=== PATIENT | female | born 2000 | race African-American/Black ===

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

== ENCOUNTER 2021-06-29 00:01 | Emergency (ER) | payer OTHER, MEDICAID ==
--- NOTE | 2021-06-29 00:40 | ED Physician Documentation ---
PD HPI URI - Stated complaint Stated Complaint: CHEST PAIN, SOA, BLURRED VISION - Chief complaint Chief Complaint: General - History obtained from History obtained from: Patient - History of Present Illness Timing - onset: How many weeks ago (1) Timing duration: Weeks (1) Timing details: Gradual onset, Still present Associated symptoms: Nasal congestion, Rhinorrhea, Sore throat, Dry cough, Chest pain, Dyspnea, Other (fatigue and light headed) Contributing factors: Unimmunized Improves by: Rest Worsened by: Activity Similar symptoms before: Diagnosis (tonsillitis) Recently seen: Not recently seen - Additional information Additional information: 21-year-old female reports weeklong history of URI symptoms with a sore throat and congestion headache fatigue and shortness of breath. She has had tonsillitis previously and feels that her tonsils are swollen and this is the biggest issue that she has. She has not been immunized for Covid. Review of Systems Constitutional: reports: Myalgias, Fatigue. denies: Fever Eyes: denies: Decreased vision Ears: denies: Ear pain Nose: reports: Rhinorrhea / runny nose, Congestion Throat: reports: Sore throat Cardiac: reports: Chest pain / pressure. denies: Palpitations Respiratory: reports: Dyspnea, Cough GI: denies: Abdominal Pain, Nausea, Vomiting : denies: Dysuria PD PAST MEDICAL HISTORY - Past Medical History Past Medical History: No - Past Surgical History Past Surgical History: No - Present Medications Home Medications: Ambulatory Orders Medication Instructions Recorded Confirmed No Known Home Medications 06/29/21 06/29/21 - Allergies Allergies/Adverse Reactions: Allergies Allergy/AdvReac Type Severity Reaction Status Date / Time No Known Drug Allergies Allergy Verified 06/29/21 00:05 - Social History Does the pt smoke?: No Smoking Status: Never smoker PD ED PE NORMAL - Vitals Vital signs reviewed: Yes (hypertensive ) - General General: Alert and oriented X 3, No acute distress, Well developed/nourished - HEENT HEENT: Atraumatic, PERRL, EOMI, Ears normal, Other (pharynx with 2+ tonsils without exudate or crypts. 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 parapertussis DNA (PCR) NOT DETECTED Nasal Coronavir 229E PCR NOT DETECTED Nasal Coronavir HKU1 PCR NOT DETECTED Nasal Coronavir NL63 PCR NOT DETECTED Nasal Coronavir OC43 PCR NOT DETECTED Nasal Enterovir/Rhinovir PCR NOT DETECTED Nasal Influenza B PCR NOT DETECTED Nasal Influenza A PCR NOT DETECTED Nasal Parainfluen 1 PCR NOT DETECTED Nasal Parainfluen 2 PCR NOT DETECTED Nasal Parainfluen 3 PCR NOT DETECTED Nasal Parainfluen 4 PCR NOT DETECTED Nasal RSV (PCR) NOT DETECTED Nasal B.pertussis DNA PCR NOT DETECTED Nasal C.pneumoniae (PCR) NOT DETECTED Rashaad Human Metapneumo PCR NOT DETECTED Nasal M.pneumoniae (PCR) NOT DETECTED Nasal SARS-CoV-2 (PCR) NOT DETECTED Group A Strep Rapid Negative PD MEDICAL DECISION MAKING - ED course Complexity details: reviewed results, re-evaluated patient, considered differential, d/w patient ED course: 21-year-old female with enlarged tonsils without exudate is diagnosed with a viral pharyngitis a rapid strep is negative Covid screen is negative as are other viral pathogens.She is treated here in the emerge department with 10 mg of dexamethasone and expected to have full recovery. Departure - Departure Disposition: 01 Home, Self Care Clinical Impression: Tonsillitis Instructions: ED Pharyngitis Viral Follow-Up: Daryl Corral MD [Primary Care Provider] - Discharge Date/Time: 06/29/21 02:05
[2021-06-29 01:03] LABS: RAPID STREP SCREEN Negative (Negative)
[2021-06-29] MEDS ORDERED: DEXAMETHASONE 10 MG/ML VIAL PO STA (01:03)
[2021-06-29] MEDS ORDERED: CHERRY SYRUP 10 ML UDC PO ONE (01:03)
[2021-06-29 01:49] LABS: CORONAVIRUS 229E-RESP PCR NOT DETECTED; CORONAVIRUS HKU1-RESP PCR NOT DETECTED; CORONAVIRUS NL63-RESP PCR NOT DETECTED; CORONAVIRUS OC43-RESP PCR NOT DETECTED; HUMAN METAPNEUMOVIRUS NOT DETECTED; INFLUENZA A- RESP PCR PANEL NOT DETECTED; RHINOVIRUS/ENTEROVIRUS NOT DETECTED; SARS-CoV-2 -RESP PCR PANEL NOT DETECTED
[2021-06-29 01:50] LABS: B. PARAPERTUSSIS- RESP PCR PAN NOT DETECTED; B. PERTUSSIS- RESP PCR PANEL NOT DETECTED; C. PNEUMONIAE- RESP PCR PANEL NOT DETECTED; INFLUENZA B - RESP PCR PANEL NOT DETECTED; M. PNEUMONIAE- RESP PCR PANEL NOT DETECTED; PARAINFLUENZA VIRUS 1 NOT DETECTED; PARAINFLUENZA VIRUS 2 NOT DETECTED; PARAINFLUENZA VIRUS 3 NOT DETECTED; PARAINFLUENZA VIRUS 4 NOT DETECTED; RSV- RESP PCR PANEL NOT DETECTED
[2021-06-29 02:11] VITALS: BP 107/54
== END 2021-06-29 02:05 | disposition home or self-care (01) ==
LOC: ED 00:01
DX: J03.90 Acute tonsillitis, unspecified (principal); Z20.822 Contact with and (suspected) exposure to COVID-19
CPT/HCPCS: 0202U; 87070; 87430; 99283; 99284; A9270

== ENCOUNTER 2021-08-23 21:55 | Emergency (ER) | payer OTHER, MEDICAID ==
[2021-08-23 22:21] LABS: BASOPHILS % (AUTO) 0.3 %; EOSINOPHILS # (AUTO) 0.2 10^3/uL (0.0-0.7); EOSINOPHILS % (AUTO) 3.5 %; HCT - HEMATOCRIT 41.5 % (37.0-47.0); HGB - HEMOGLOBIN 13.3 g/dL (12.0-16.0); LYMPHOCYTES # (AUTO) 3.5 10^3/uL (1.5-3.5); LYMPHOCYTES % (AUTO) 54.2 %; MEAN CORPUSCULAR HEMOGLOBIN 28.1 pg (27.0-31.0); MEAN CORPUSCULAR VOLUME 87.6 fL (81.0-99.0); MONOCYTES # (AUTO) 0.6 10^3/uL (0.0-1.0); MONOCYTES % (AUTO) 8.8 %; NEUTROPHILS # (AUTO) 2.1 10^3/uL (1.5-6.6); NEUTROPHILS % (AUTO) 32.9 %; PLT - PLATELET COUNT 315 10^3/uL (130-450); RED BLOOD COUNT 4.74 10^6/uL (4.20-5.40); RED CELL DISTRIBUTION WIDTH 13.2 % (12.0-15.0); WHITE BLOOD COUNT 6.5 x10^3/uL (4.8-10.8)
[2021-08-23 22:22] LABS: BILIRUBIN,URINE NEGATIVE (NEGATIVE); GLUCOSE, URINE (UA) NEGATIVE (NEGATIVE); KETONES,URINE (UA) NEGATIVE (NEGATIVE); LEUKOCYTE ESTERASE, URINE NEGATIVE (NEGATIVE); NITRITE,URINE NEGATIVE (NEGATIVE); OCCULT BLOOD,URINE NEGATIVE (NEGATIVE); PH,URINE 5.5 PH (5.0-7.5); PROTEIN,URINE NEGATIVE (NEGATIVE); UROBILINOGEN,URINE 0.2 (NORMAL) E.U./dL (NORMAL)
[2021-08-23 22:26] LABS: CLARITY,URINE CLEAR (CLEAR)
--- NOTE | 2021-08-23 22:32 | ED Physician Documentation ---
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 She is presented to the emergency department today with some left lower quadrant abdominal pain and cramping without bleeding. She has had undulation of her symptoms. She has not had ultrasound with this and feels she is about 8 weeks. Review of Systems Constitutional: denies: Fever Nose: denies: Congestion Throat: reports: Other (has a left tonsillar hypertrophy). 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, Other HEENT: Tonsil/Adenoidectomy - Present Medications Home Medications: Ambulatory Orders Medication Instructions Recorded Confirmed No Known Home Medications 06/29/21 08/23/21 - Allergies Allergies/Adverse Reactions: Allergies Allergy/AdvReac Type Severity Reaction Status Date / Time No Known Drug Allergies Allergy Verified 08/23/21 22:03 - Social History Does the pt smoke?: No Smoking Status: Never smoker Does the pt drink ETOH?: No Does the pt have substance abuse?: No - Immunizations Immunizations are current?: Yes - POLST Patient has POLST: No PD ED PE NORMAL - Vitals Vital signs reviewed: Yes (normal ) - General General: Alert and oriented X 3, No acute distress, Well developed/nourished - HEENT HEENT: Atraumatic, PERRL, EOMI - Neck Neck: Supple, no meningeal sign, No bony TTP - Cardiac Cardiac: RRR, No murmur - Respiratory Respiratory: No respiratory distress, Clear bilaterally - Abdomen Abdomen: Normal bowel sounds, Soft, Non distended, No organomegaly, Other (mini mal left suprapubic tenderness) - Back Back: No CVA TTP, No spinal TTP - Derm Derm: Normal color, Warm and dry, No rash - Extremities Extremities: No deformity, No edema - Neuro Neuro: Alert and oriented X 3, base loader 2-12 intact, No motor deficit, No sensory deficit, Normal speech Eye Opening: Spontaneous Motor: Obeys Commands Verbal: Oriented GCS Score: 15 - Psych Psych: Normal mood, Normal affect Results - Vitals Vitals: Vital Signs - 24 hr 08/23/21 08/24/21 21:58 00:28 Temperature 36.4 C L 36.8 C Heart Rate 83 77 Respiratory 18 16 Rate Blood Pressure 113/66 106/69 O2 Saturation 100 100 Oxygen O2 Source Room air - Labs Labs: Laboratory Tests 08/23/21 08/23/21 08/23/21 22:08 22:10 22:10 WBC 6.5 RBC 4.74 Hgb 13.3 Hct 41.5 MCV 87.6 MCH 28.1 MCHC 32.0 RDW 13.2 Plt Count 315 MPV 10.0 Neut # (Auto) 2.1 Lymph # (Auto) 3.5 [place] # (Auto) 0.6 Eos # (Auto) 0.2 Baso # (Auto) 0.0 Absolute Nucleated RBC 0.00 Nucleated RBC % 0.0 Sodium 136 Potassium 3.9 Chloride 103 Carbon Dioxide 26 Anion Gap 7.0 BUN 9 Creatinine 0.6 Estimated GFR (MDRD) 154 Glucose 90 Calcium 9.6 Total Bilirubin 0.5 AST 20 ALT 21 Alkaline Phosphatase 67 Total Protein 8.3 H Albumin 4.4 Globulin 3.9 Albumin/Globulin Ratio 1.1 Lipase 36 HCG, Quant Urine Color YELLOW Urine Clarity CLEAR Urine pH 5.5 Ur Specific [place] 1.010 Urine Protein NEGATIVE Urine Glucose (UA) NEGATIVE Urine Ketones NEGATIVE Urine Occult Blood NEGATIVE Urine Nitrite NEGATIVE Urine Bilirubin NEGATIVE Urine Urobilinogen 0.2 (NORMAL) Ur Leukocyte Esterase NEGATIVE Ur Microscopic Review NOT INDICATED Urine Culture Comments NOT INDICATED 08/23/21 22:10 WBC RBC Hgb Hct MCV MCH MCHC RDW Plt Count MPV Neut # (Auto) Lymph # (Auto) [place] # (Auto) Eos # (Auto) Baso # (Auto) Absolute Nucleated RBC Nucleated RBC % Sodium Potassium Chloride Carbon Dioxide Anion Gap BUN Creatinine Estimated GFR (MDRD) Glucose Calcium Total Bilirubin AST ALT Alkaline Phosphatase Total Protein Albumin Globulin Albumin/Globulin Ratio Lipase HCG, Quant 553.24 Urine Color Urine Clarity Urine pH Ur Specific [place] Urine Protein Urine Glucose (UA) Urine Ketones Urine Occult Blood Urine Nitrite Urine Bilirubin Urine Urobilinogen Ur Leukocyte Esterase Ur Microscopic Review Urine Culture Comments - Rads (name of study) ob ultrasound 1st trimester. Radiology: Prelim report reviewed (Impression: 1. No intrauterine identified. A very early may be present. Enlarged and hypervascular left fallopian tube region may contain an ectopic although the gestational sacs is not seen. Differential diagnosis includes prominent periuterine vasculature. ), Final report received ( Small amount of free fluid in the cul-de-sac. Gynecologic consult, serial beta hCG level and close clinical follow-up could be considered), EMP read indepedently, See rad report PD MEDICAL DECISION MAKING - ED course Complexity details: reviewed results, re-evaluated patient, considered differential, d/w patient ED course: 21-year-old female with early and a low seizure serum hCG has no findings of intra uterine . She does have some findings in the left fallopian tube. Her case is concerning for the possibility of ectopic and she is asked to follow-up this week with POLICE STENOGRAPHER for repeat hCG. Departure - Departure Disposition: 01 Home, Self Care Clinical Impression: Early stage of Instructions: ED Abdominal Pain Rule Out Ectopic Follow-Up: Daryl Corral MD [Primary Care Provider] - [facility] [Provider Group] Comments: Atif, today we were unable to establish that your is in the uterus. The quantitative hCG is low at 553 and we do not expect to see anything by ultrasound --- too early. A follow up with the OB doctor this coming week is indicated to get a second hCG number to assure the is progressing normally. Discharge Date/Time: 08/24/21 01:04
[2021-08-23 22:36] LABS: ALBUMIN 4.4 g/dL (3.2-5.5); ALBUMIN/GLOBULIN RATIO 1.1 (1.0-2.2); BILIRUBIN,TOTAL 0.5 mg/dL (0.2-1.0); CREATININE 0.6 mg/dL (0.4-1.0); POTASSIUM 3.9 mmol/L (3.5-5.0); TOTAL PROTEIN 8.3 g/dL (6.7-8.2)
[2021-08-23 22:45] LABS: CALCIUM 9.6 mg/dL (8.5-10.3)
[2021-08-24 00:29] VITALS: BP 106/69
--- NOTE | 2021-08-24 01:03 | Ultrasound Report ---
PROCEDURE: OB First Trimester INDICATIONS: early LLQ pain OUTSIDE/PRIOR DATING DATA: Last menstrual period (LMP): 06/26/2021. LMP-based estimated date of delivery (QI): 04/02/2022. First dating scan (date and location): 08/23/2021, current study. Estimated date of delivery (QI) from first dating scan: Not applicable. TECHNIQUE: Real-time scanning was performed of the fetus and maternal pelvic organs, with image documentation. COMPARISON: None FINDINGS: Embryo: Not applicable Heart rate: Not applicable Measurement variability in dating: +/- 4 weeks by LMP, +/- 7 days by mean sac diameter (use before 6 weeks gestation if crown-rump length not able to be measured), +/- 5 days by crown-rump length (6-12 weeks gestation). Maternal organs: The uterine endometrium appears diffusely thickened measuring approximately 19 mm. There is a tiny irregular 4 mm cystic space, but no definite intrinsic uterine gestational sac. The left ovary contains a 1.6 cm dominant follicle without significant peripheral hypervascularity. T he left fallopian tube is prominent and demonstrates increased vascular flow, however a discrete tuba l structure is not identified. There is no adjacent free fluid. The right ovary appears nor mal. Small amount of fluid around the right ovary is present in the cul-de-sac. IMPRESSION: 1. No intrauterine identified. A very early may be present. 2. Enlarged and hypervascular left fallopian tube region may contain an ectopic although th e gestational sac was not seen. Differential diagnosis includes prominent periuterine vasculature. 3. Small amount of free fluid in the cul-de-sac. 4. Gynecologic consult, serial beta-hCG level, and close clinical follow-up could be considered. Reviewed by: Nikki Flores MD on 08/24/2021 1:02 AM PST Approved by: Nikki Flores MD on 08/24/2021 1:02 AM PST Station ID: [id number]
== END 2021-08-24 01:04 | disposition home or self-care (01) ==
LOC: ED 21:55
DX: O26.891 Other specified pregnancy related conditions, first trimester (principal); R93.89 Abnormal findings on diagnostic imaging of other specified body structures; Z3A.00 Weeks of gestation of pregnancy not specified
CPT/HCPCS: 36415; 80053; 81001; 81003; 83690; 84702; 85025; 87086; 99283; 99284

== ENCOUNTER 2021-08-26 07:07 | Outpatient (CLI) | payer OTHER, MEDICAID | END 2021-08-26 07:08 | disposition home or self-care (01) | LOC: LAB 07:07 | PROVIDERS: ATTEND Obstetrics & Gynecology | DX: R10.32 Left lower quadrant pain (principal) | CPT/HCPCS: 36415; 84702 ==

== ENCOUNTER 2021-10-16 23:48 | Emergency (ER) | payer OTHER, MEDICAID ==
--- NOTE | 2021-10-16 23:57 | ED Physician Documentation ---
PD HPI FEMALE - Stated complaint Stated Complaint: BLEEDING, CRAMPING - History obtained from History obtained from: Patient - History of Present Illness Timing - onset: Today Timing - details: Abrupt onset Pain level max: 1 Associated symptoms: Pelvic pain (left/midline pelvic cramping3), Vaginal discharge. 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 She has had an ultrasound in this which she says was normal. She has had left pelvic and suprapubic cramping, intermittently, since she was found to be (since July; this is not new). Her chief concern tonight is vaginal brown fluid leakage (pe r patient) from her vagina tonight. There was only one such episode; she isnt certain if it was brownish blood or something else. Has not had this before. Does not know her blood type Review of Systems Constitutional: denies: Fever GI: denies: Abdominal Pain, Vomiting : reports: Vaginal bleeding (? (brown fluid, uncertain if this represented blood)), Now EGA (11+weeks). 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, Other HEENT: Tonsil/Adenoidectomy - Present Medications Home Medications: Ambulatory Orders Medication Instructions Recorded Confirmed Pnv No.163/Iron/Folate No.10 [Pnv 1 tab PO DAILY 10/17/21 10/17/21 Tabs 20-1 Tablet] - Allergies Allergies/Adverse Reactions: Allergies Allergy/AdvReac Type Severity Reaction Status Date / Time No Known Drug Allergies Allergy Verified 08/23/21 22:03 - Social History Does the pt smoke?: No Smoking Status: Never smoker Does the pt drink ETOH?: No Does the pt have substance abuse?: No - Immunizations Immunizations are current?: Yes - POLST Patient has POLST: No PD ED PE NORMAL - Vitals Vital signs reviewed: Yes - General General: Alert and oriented X 3, No acute distress, Well developed/nourished - Cardiac Cardiac: RRR, No murmur - Respiratory Respiratory: No respiratory distress, Clear bilaterally - Abdomen Abdomen: Normal bowel sounds, Soft, Non tender, Non distended - Back Back: No CVA TTP Results - Vitals Vitals: Oxygen O2 Source Room air - Labs Labs: Microbiology 10/17/21 01:55 Urine Culture - Final Urine,Clean Catch No growth Laboratory Tests 10/17/21 10/17/21 00:31 01:55 Urine Color YELLOW Urine Clarity CLEAR Urine pH 6.5 Ur Specific [place] 1.010 Urine Protein NEGATIVE Urine Glucose (UA) NEGATIVE Urine Ketones NEGATIVE Urine Occult Blood NEGATIVE Urine Nitrite NEGATIVE Urine Bilirubin NEGATIVE Urine Urobilinogen 0.2 (NORMAL) Ur Leukocyte Esterase TRACE H Urine RBC None Seen Urine WBC 4-5 Ur Squamous Epith Cells FEW Squamous Urine Bacteria Rare Ur Microscopic Review INDICATED Urine Culture Comments INDICATED Blood Type B POSITIVE - Rads (name of study) pelvic US Radiology: Prelim report reviewed, See rad report PD MEDICAL DECISION MAKING - ED course Complexity details: reviewed results, re-evaluated patient, considered differe ntial, d/w patient ED course: blood type is B+, so no concern for rhogam. UA is nearly normal, but with trace WBC, culture will be performed and if appropriate results, can start antibiotics for asymptomatic bacteruria in setting of . US is mostly reassuring with normal heart rate. There is a small subchorionic hemorrhage. I discussed results with patient, recommended f/u with her rn clinical, return precautions discussed. Departure - Departure Disposition: 01 Home, Self Care Clinical Impression: Threatened miscarriage Condition: Good Instructions: ED Miscarriage Poss Follow-Up: Daryl Corral MD [Primary Care Provider] - Comments: Your blood type is B POSITIVE. Your urinalysis has trace white blood cells; while this is an abnormal finding, the amount of white blood cells (and lack of other findings to suggest a urinary tract infection) means you do not need antibiotics at this time. A urine culture will be done next, and if the result is positive (should be available within 2 days), you will need antibiotics (you should receive a call from this hospital if your urinalysis result shows an infection). Your ultrasound is mostly reassuring, with a normal heart rate, with the fetus measurements consistent with a 12 week, 2 day . There is a corpus luteal cyst of the left ovary; this ia a normal finding. There is a small amount of bleeding adjacent to the within the uterus; this is called a subchorionic hemorrhage. It is an abnormal finding, but it is small on today's ultrasound. While this is a concerning finding, when it is a small amount of bleeding, it does not correlate with outcomes such as miscarriage. You should follow up with your rn clinical by calling the office on Tuesday , relay this information to them and they can advise you regarding follow up recommendations and the timing of follow-up. Forms: Activity restrictions Discharge Date/Time: 10/17/21 03:15
--- NOTE | 2021-10-17 02:04 | Ultrasound Report ---
PROCEDURE: OB First Trimester INDICATIONS: 11 WEEKS , CRAMPING, SCANT VAGINAL DISCHARGE OUTSIDE/PRIOR DATING DATA: Last menstrual period (LMP): Unknown. LMP-based estimated date of delivery (QI): Unknown First dating scan (date and location): Not available. Estimated date of delivery (QI) from first dating scan: Not available TECHNIQUE: Real-time scanning was performed of the fetus and maternal pelvic organs, with image documentation. COMPARISON: None FINDINGS: Embryo: Single intrauterine gestational sac is seen with fetus noted. [place]-rump length measures 5.6 9 cm. Estimated gestational age is 12 weeks, 2 days. Heart rate: 158 bpm. Small subchorionic bleed is noted measures 1.6 x 0.6 x 2.8 cm in size. Placental venous dorado is also noted. Measurement variability in dating: +/- 4 weeks by LMP, +/- 7 days by mean sac diameter (use before 6 weeks gestation if crown-rump length not able to be measured), +/- 5 days by crown-rump length (6-12 weeks gestation). Maternal organs: Corpus luteal cyst is noted in left ovary measures 1.6 x 1.6 x 1 cm in size. IMPRESSION: 1. Single live intrauterine with fetus seen. heart rate is 158 bpm. Estimated gestati onal age based on current study is 12 weeks, 2 days. 2. Small subchorionic hemorrhage as above. Corpus luteal cyst in left ovary as above. Reviewed by: Lewis Swanson MD on 10/17/2021 2:02 AM PST Approved by: Lewis Swanson MD on 10/17/2021 2:02 AM PST Station ID: [id number]
[2021-10-17 02:05] LABS: BILIRUBIN,URINE NEGATIVE (NEGATIVE); GLUCOSE, URINE (UA) NEGATIVE (NEGATIVE); KETONES,URINE (UA) NEGATIVE (NEGATIVE); LEUKOCYTE ESTERASE, URINE TRACE (NEGATIVE); NITRITE,URINE NEGATIVE (NEGATIVE); OCCULT BLOOD,URINE NEGATIVE (NEGATIVE); PH,URINE 6.5 PH (5.0-7.5); PROTEIN,URINE NEGATIVE (NEGATIVE); UROBILINOGEN,URINE 0.2 (NORMAL) E.U./dL (NORMAL)
[2021-10-17 02:13] LABS: BACTERIA,URINE Rare /HPF (None Seen); CLARITY,URINE CLEAR (CLEAR); RBC,URINE None Seen /HPF (0-5); SQUAMOUS EPITHELIAL CELL,UR FEW Squamous (<= Few)
[2021-10-17 02:29] VITALS: BP 107/69
== END 2021-10-17 03:15 | disposition home or self-care (01) ==
LOC: ED 23:48
DX: O20.0 Threatened abortion (principal); Z3A.11 11 weeks gestation of pregnancy
CPT/HCPCS: 81001; 81003; 86900; 86901; 87086; 99282; 99284

== ENCOUNTER 2021-12-15 13:33 | Emergency (ER) | payer OTHER, MEDICAID ==
--- NOTE | 2021-12-15 14:21 | ED Physician Documentation ---
History of Present Illness - Stated complaint Stated Complaint: CHEST PX,SOA - Chief complaint Chief Complaint: Resp - History obtained from History obtained from: Patient - History of Present Illness Timing: Other (3 months) Pain level max: 3 Pain level now: 1 - Additonal information Additional information: Patient is a 21-year-old female, 2 para 1 who presents to the emergency department complaining of intermittent chest pain. She states that when she inhales deeply she feels a cool sensation in her chest. No difficulty breathing. No nausea or vomiting. She states she had similar symptoms with her prior , was told it was related to reflux. She talked to her OB about it 2 months ago, but symptoms have persisted. She has not followed up with her OB regarding this. No abdominal pain. No vaginal bleeding. No discharge. Currently not having any chest pain. The chest pain is intermittent, usually sharp and seems to be worse if she falls asleep in the car. No calf pain or leg swelling. No recent travel. No surgeries. Review of Systems Constitutional: denies: Fever, Chills Ears: denies: Ear pain Nose: denies: Rhinorrhea / runny nose, Congestion Throat: denies: Sore throat Cardiac: denies: Palpitations Respiratory: denies: Dyspnea, Cough, Hemoptysis, Wheezing PD PAST MEDICAL HISTORY - Past Medical History Past Medical History: Yes Cardiovascular: None Respiratory: None Neuro: None Endocrine/Autoimmune: None GI: None RUG WASHER: None : None HEENT: None Psych: Anxiety Musculoskeletal: None Derm: None - Past Surgical History Past Surgical History: Yes /RUG WASHER: section, Other HEENT: Tonsil/Adenoidectomy - Present Medications Home Medications: Ambulatory Orders Medication Instructions Recorded Confirmed Pnv No.163/Iron/Folate No.10 [Pnv 1 tab PO DAILY 10/17/21 12/15/21 Tabs 20-1 Tablet] Albuterol Sulf [Ventolin Hfa 1 - 2 puffs INH Q4HR PRN #1 inhaler 12/15/21 Inhaler] - Allergies Allergies/Adverse Reactions: Allergies Allergy/AdvReac Type Severity Reaction Status Date / Time No Known Drug Allergies Allergy Verified 12/15/21 13:37 - Social History Does the pt smoke?: No Smoking Status: Never smoker Does the pt drink ETOH?: No Does the pt have substance abuse?: No - Immunizations Immunizations are current?: Yes - POLST Patient has POLST: No PD ED PE NORMAL - Vitals Vital signs reviewed: Yes - General General: Alert and oriented X 3, No acute distress, Well developed/nourished - HEENT HEENT: Atraumatic, PERRL, Moist mucous membranes - Neck Neck: Supple, no meningeal sign - Cardiac Cardiac: RRR, Strong equal pulses - Respiratory Respiratory: No respiratory distress, Clear bilaterally - Abdomen Abdomen: Soft, Non tender, Non distended - Back Back: No CVA TTP, No spinal TTP - Derm Derm: Warm and dry, No rash - Extremities Extremities: No edema, No calf tenderness / cord - Neuro Neuro: Alert and oriented X 3 - Psych Psych: Normal mood, Normal affect Results - Vitals Vitals: Vital Signs - 24 hr 12/15/21 12/15/21 12/15/21 13:38 13:57 15:00 Temperature 36.6 C Heart Rate 75 79 72 Respiratory 16 16 20 Rate Blood Pressure 108/69 114/70 115/73 O2 Saturation 100 100 100 12/15/21 15:35 Temperature Heart Rate 88 Respiratory 16 Rate Blood Pressure O2 Saturation Oxygen O2 Source Room air - EKG (time done) 1436 Rate: Rate (enter#) (70) Rhythm: NSR Williams: Normal Intervals: Normal CO QRS: Normal Ischemia: Normal ST segments - Labs Labs: Laboratory Tests 12/15/21 12/15/21 12/15/21 14:24 14:24 14:24 WBC 8.5 RBC 3.72 L Hgb 10.7 L Hct 33.5 L MCV 90.1 MCH 28.8 MCHC 31.9 L RDW 13.7 Plt Count 229 MPV 10.6 Neut # (Auto) 5.3 Lymph # (Auto) 2.3 Johnson # (Auto) 0.6 Eos # (Auto) 0.2 Baso # (Auto) 0.0 Absolute Nucleated RBC 0.00 Nucleated RBC % 0.0 Sodium 133 L Potassium 3.5 Chloride 102 Carbon Dioxide 24 Anion Gap 7.0 BUN 5 L Creatinine 0.4 Estimated GFR (MDRD) 247 Glucose 83 Calcium 8.6 Total Bilirubin 0.2 AST 14 ALT 10 Alkaline Phosphatase 46 Troponin I High Sens < 2.3 L Total Protein 6.1 L Albumin 2.8 L Globulin 3.3 Albumin/Globulin Ratio 0.8 L Lipase 27 - Rads (name of study) Chest x-ray Radiology: Final report received, EMP read contemporaneously, See rad report (No acute abnormality) PD MEDICAL DECISION MAKING - ED course Complexity details: reviewed results, re-evaluated patient, considered differential (No ST elevation HI, no aortic dissection, no PE, no tension pneumothorax, no aortic aneurysm), d/w patient ED course: Unclear etiology of the patient's symptoms. She does feel better after an albuterol inhaler. Will prescribe this for home. Chest x-ray does not show any acute abnormalities. EKG and laboratory testing are without abnormalities here as well. No evidence of acute coronary syndrome, pulmonary embolus, aortic dissection. Possible reflux? We will have her follow-up with her OB for further care. No vaginal bleeding, discharge, abdominal pain or cramping. Patient counseled regarding signs and symptoms for which I believe and urgent re-evaluation would be necessary. Patient with good understanding of and agreement to plan and is comfortable going home at this time This document was made in part using voice recognition software. While efforts are made to proofread this document, sound alike and grammatical errors may occur. Departure - Departure Disposition: 01 Home, Self Care Clinical Impression: Dyspnea Qualifiers: Dyspnea type: unspecified Qualified Code(s): R06.00 - Dyspnea, unspecified Chest pain Qualifiers: Chest pain type: unspecified Qualified Code(s): R07.9 - Chest pain, unspecified Condition: Good Instructions: ED Chest Pain Atypical Unkn Cause, ED Dyspnea Shortness of Breath Prescriptions: Albuterol Sulf [Ventolin Hfa Inhaler] 1 - 2 puffs INH Q4HR PRN #1 inhaler PRN Reason: Shortness Of Air/Wheezing Comments: Your prescriptions were sent to [facility] in [place]. Your EKG, laboratory testing and x-ray do not show any acute abnormalities today. We will trial you on inhaler to see if this helps your symptoms. Please follow-up with your OB for further care. Return if you worsen. Discharge Date/Time: 12/15/21 15:58
[2021-12-15 14:33] LABS: BASOPHILS % (AUTO) 0.2 %; EOSINOPHILS # (AUTO) 0.2 10^3/uL (0.0-0.7); EOSINOPHILS % (AUTO) 2.2 %; HCT - HEMATOCRIT 33.5 % (37.0-47.0); HGB - HEMOGLOBIN 10.7 g/dL (12.0-16.0); LYMPHOCYTES # (AUTO) 2.3 10^3/uL (1.5-3.5); LYMPHOCYTES % (AUTO) 27.6 %; MEAN CORPUSCULAR HEMOGLOBIN 28.8 pg (27.0-31.0); MEAN CORPUSCULAR HGB CONC 31.9 g/dL (32.0-36.0); MEAN CORPUSCULAR VOLUME 90.1 fL (81.0-99.0); MEAN PLATELET VOLUME 10.6 fL (7.9-10.8); MONOCYTES # (AUTO) 0.6 10^3/uL (0.0-1.0); MONOCYTES % (AUTO) 6.8 %; NEUTROPHILS # (AUTO) 5.3 10^3/uL (1.5-6.6); NEUTROPHILS % (AUTO) 62.6 %; PLT - PLATELET COUNT 229 10^3/uL (130-450); RED BLOOD COUNT 3.72 10^6/uL (4.20-5.40); RED CELL DISTRIBUTION WIDTH 13.7 % (12.0-15.0); WHITE BLOOD COUNT 8.5 x10^3/uL (4.8-10.8)
[2021-12-15 14:46] LABS: ALBUMIN 2.8 g/dL (3.2-5.5); ALBUMIN/GLOBULIN RATIO 0.8 (1.0-2.2); BILIRUBIN,TOTAL 0.2 mg/dL (0.2-1.0); CALCIUM 8.6 mg/dL (8.5-10.3); CREATININE 0.4 mg/dL (0.4-1.0); POTASSIUM 3.5 mmol/L (3.5-5.0); TOTAL PROTEIN 6.1 g/dL (6.7-8.2)
--- NOTE | 2021-12-15 14:58 | XRAY Report ---
PROCEDURE: Chest 1 View X-Ray INDICATIONS: Chest Pain TECHNIQUE: One view of the chest was acquired. COMPARISON: None FINDINGS: Surgical changes and devices: None. Lungs and pleura: No pleural effusions or pneumothorax. Lungs are clear. Mediastinum: Mediastinal contours appear normal. Heart size is normal. Bones and chest wall: No suspicious bony lesions. Overlying soft tissues appear unremarkable. IMPRESSION: No acute cardiopulmonary pathology. Reviewed by: Lewis Swanson MD on 12/15/2021 2:57 PM PDT Approved by: Lewis Swanson MD on 12/15/2021 2:57 PM PDT Station ID: [id number]
[2021-12-15 15:10] VITALS: BP 115/73
[2021-12-15] MEDS ORDERED: ALBUTEROL 1 PUFF INH STA (15:12)
== END 2021-12-15 15:58 | disposition home or self-care (01) ==
LOC: ED 13:33
DX: O99.891 Other specified diseases and conditions complicating pregnancy (principal); R07.9 Chest pain, unspecified; R06.00 Dyspnea, unspecified; Z3A.00 Weeks of gestation of pregnancy not specified
CPT/HCPCS: 36415; 80053; 83690; 84484; 85025; 93005; 94640; 94664; 99284

== ENCOUNTER 2021-12-16 20:07 | Outpatient (CLI) | payer OTHER, MEDICAID ==
--- NOTE | 2021-12-16 21:21 | PROVIDER PROGRESS NOTE ---
- HPI Chief Complaint: Pain, non-labor Current : Vital Signs Temperature 98.8 F 12/16/21 20:19 Heart Rate 72 12/16/21 20:19 Respiratory Rate 16 12/16/21 20:19 Blood Pressure 118/78 12/16/21 20:19 O2 Saturation 100 12/16/21 20:19 Temperature 98.8 F 12/16/21 20:19 Heart Rate 72 12/16/21 20:19 Respiratory Rate 16 12/16/21 20:19 Blood Pressure 118/78 12/16/21 20:19 O2 Saturation 100 12/16/21 20:19 - Plan Plan: Patient is a 21-year-old at 20 weeks 2 days gesation by 6-week ultrasound (QI 05/03/22 by ultrasound at [facility]) presenting to triage due to gasping for air waking her from sleep. She sees a provider in [place], Dr. Corral. She was seen in the ED yesterday for shortness of breath and had an unremarkable exam. Chest x-ray that time was normal. She was prescribed an albuterol inhaler for which she has been taking every 4 hours since then. This has caused some shaking. Symptoms have not worsened, but inhaler seems less effective than yesterday. Complains that she feels like avoiding sleep as it is a scary and annoying feeling when she wakes up short of breath She also complains of abdomial and sacral pressure. This does not feel like contractions. Has been frequent to nearly constant since September. Thinks it is related to her subchorionic bleed. She has good movement, no leaking, no vaginal bleeding. She denies headache, right upper quadrant pain, changes in vision. Past medical history Heartburn Bronchospasms Sleep dyspnea Past surgical history section Family history Non contributory Social history Denies tobacco, alcohol, drugs Physical Exam Constitutional: alert, no acute distress, well hydrated, well developed, well nourished, appropriate dress. Skin: normal turgor, normal color. Head: atraumatic, normocephalic. Cardiovascular: RRR. Respiratory: no respiratory distress. Abdomen: nondistended, mild suprapubic tenderness. No flank pain or CVA tenderness. Spine: normal mobility. Neurologic: normal, sensation intact, motor intact. Psych: affect and mood appropriate, normal interaction, good eye contact. 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 heart tones 144. Assessment and plan 21-year-old -0-1-1 at 20 weeks 2 days gestation by 6-week ultrasound presenting with sleep dyspnea and pelvic pain. Sleep dyspnea: -Discussed worsening of symptoms with due to increase in weight, fluid levels. Can cause increase and sleep apnea symptoms. Encouraged her to use her albuterol when needed, but not use it schedule as it is giving her shakiness. -Chest x-ray yesterday showed no abnormalities. As symptoms are worsening, no reason to repeat today. -Describes chest heaviness, no acute pain. Worse when related to a gasping episode that wakes her from sleep. -May benefit from loratidine or cetirizine. Can also try omeprazole or famotidine for GERD that can irritate the airway as well. Heartburn -We will try Tums as needed currently. Has an appointment next week with her primary OB provider and will ask about preventative medication if this is not helpful for her. Discussed that this may actually help her dyspnea as well. Abdominal pain -No dilation on cervical exam. -UA unremarkable today. -Discussed discomforts of . If this has been an ongoing issue, will likely continue at this point -Tylenol for tail bone pain. 20 weeks gestation: -Encouraged following up with her OB provider. Subchorionic bleed -Discussed that these usually resolve and are often not a significant issue in , especially without vaginal bleeding. Should be reassured at this point in .
[2021-12-16 22:35] LABS: BILIRUBIN,URINE NEGATIVE (NEGATIVE); GLUCOSE, URINE (UA) NEGATIVE (NEGATIVE); KETONES,URINE (UA) NEGATIVE (NEGATIVE); LEUKOCYTE ESTERASE, URINE TRACE (NEGATIVE); NITRITE,URINE NEGATIVE (NEGATIVE); OCCULT BLOOD,URINE NEGATIVE (NEGATIVE); PROTEIN,URINE NEGATIVE (NEGATIVE); UROBILINOGEN,URINE 0.2 (NORMAL) E.U./dL (NORMAL)
[2021-12-16 22:42] LABS: CLARITY,URINE CLEAR (CLEAR); RBC,URINE 0-5 /HPF (0-5); SQUAMOUS EPITHELIAL CELL,UR MOD Squamous (<= Few)
[2021-12-16 22:43] LABS: BACTERIA,URINE Few /HPF (None Seen)
[2021-12-17 00:30] VITALS: BP 103/62
== END 2021-12-16 23:15 | disposition home or self-care (01) ==
LOC: WFO 20:07 → FBP 20:09 → WFO 23:15
PROVIDERS: ATTEND Obstetrics & Gynecology
DX: O99.891 Other specified diseases and conditions complicating pregnancy (principal); R06.02 Shortness of breath; R10.2 Pelvic and perineal pain; M53.3 Sacrococcygeal disorders, not elsewhere classified; R12 Heartburn; O9A.212 Injury, poisoning and certain other consequences of external causes complicating pregnancy, second trimester; R25.8 Other abnormal involuntary movements; T48.6X5A Adverse effect of antiasthmatics, initial encounter; Z3A.20 20 weeks gestation of pregnancy
CPT/HCPCS: 81001; 87086; 99213

== ENCOUNTER 2022-03-02 20:25 | Outpatient (CLI) | payer OTHER, MEDICAID ==
[2022-03-02] MEDS ORDERED: ACETAMINOPHEN 500 MG TABLET PO ONE (22:30)
[2022-03-03 22:50] LABS: BACTERIA,URINE Few /HPF (None Seen); BILIRUBIN,URINE NEGATIVE (NEGATIVE); CLARITY,URINE CLEAR (CLEAR); GLUCOSE, URINE (UA) NEGATIVE (NEGATIVE); KETONES,URINE (UA) 15 mg/dL (NEGATIVE); LEUKOCYTE ESTERASE, URINE SMALL (NEGATIVE); NITRITE,URINE NEGATIVE (NEGATIVE); OCCULT BLOOD,URINE NEGATIVE (NEGATIVE); PH,URINE 6.5 PH (5.0-7.5); PROTEIN,URINE NEGATIVE (NEGATIVE); RBC,URINE 0-5 /HPF (0-5); SQUAMOUS EPITHELIAL CELL,UR MANY Squamous (<= Few); UROBILINOGEN,URINE 0.2 (NORMAL) E.U./dL (NORMAL); WBC,URINE 0-3 /HPF (0-5)
[2022-03-03 22:56] LABS: BACTERIAL VAGINOSIS DNA POSITIVE (NEGATIVE); CANDIDA GLABRATA DNA NEGATIVE (NEGATIVE); CANDIDA GROUP DNA POSITIVE (NEGATIVE); CANDIDA KRUSEI DNA NEGATIVE (NEGATIVE); TRICHOMONAS VAGINALIS DNA NEGATIVE (NEGATIVE)
--- NOTE | 2022-03-05 15:14 | Ultrasound Report ---
PROCEDURE: OB INDICATIONS: Pre-term Labor at 31 weeks OUTSIDE/PRIOR DATING DATA: Last menstrual period (LMP): Unknown. LMP-based estimated date of delivery (QI): N/A. First dating scan (date and location): 10/17/2021. Estimated date of delivery (QI) from first dating scan: 04/29/2022. The below data below was generated using the ultrasound QI of 04/29/2022 TECHNIQUE: Real-time scanning was performed of the fetus, with image documentation. Endovaginal scanning: Not performed COMPARISON: OB ultrasound 10/17/2021 FINDINGS: A single living intrauterine gestation is present. Presentation: Cephalic Placenta: Placental position is posterior, without previa. Amniotic fluid index: 17.8 cm, normal for gestational age. Single deepest vertical fluid pocket: 5.6 cm heart rate: 148 beats per minutes. Maternal cervical canal: 4.1 cm long; normal length is 2.5 cm or more. Estimated gestational age from initial scan: 31 weeks 6 days. IMPRESSION: 1.Single live intrauterine . 2.Cervix length is 4.1 cm with a closed internal os. 3.Amniotic fluid index is within normal limits. Reviewed by: Candelario King MD on 03/04/2022 8:03 AM PDT Approved by: Candelario King MD on 03/04/2022 8:03 AM PDT Station ID: [id number]
== END 2022-03-03 13:45 | disposition home or self-care (01) ==
LOC: ED 20:25 → WFO 20:25 → ED 03-03 13:45
PROVIDERS: ATTEND Obstetrics & Gynecology
DX: O47.03 False labor before 37 completed weeks of gestation, third trimester (principal); Z3A.31 31 weeks gestation of pregnancy; O98.813 Other maternal infectious and parasitic diseases complicating pregnancy, third trimester; B37.3 Candidiasis of vulva and vagina; O34.219 Maternal care for unspecified type scar from previous cesarean delivery; O99.613 Diseases of the digestive system complicating pregnancy, third trimester; K59.00 Constipation, unspecified; R51.9 Headache, unspecified
CPT/HCPCS: 36415; 76815; 81001; 81514; 82731; 99215; A9270

== ENCOUNTER 2022-03-26 13:32 | Outpatient (CLI) | payer OTHER, MEDICAID ==
[2022-03-26 14:10] LABS: BILIRUBIN,URINE NEGATIVE (NEGATIVE); GLUCOSE, URINE (UA) NEGATIVE (NEGATIVE); KETONES,URINE (UA) NEGATIVE (NEGATIVE); LEUKOCYTE ESTERASE, URINE TRACE (NEGATIVE); NITRITE,URINE NEGATIVE (NEGATIVE); OCCULT BLOOD,URINE NEGATIVE (NEGATIVE); PH,URINE 7.5 PH (5.0-7.5); PROTEIN,URINE NEGATIVE (NEGATIVE); UROBILINOGEN,URINE 0.2 (NORMAL) E.U./dL (NORMAL)
[2022-03-26 14:12] VITALS: BP 146/62
[2022-03-26 14:41] LABS: CLARITY,URINE CLEAR (CLEAR)
[2022-03-26 14:42] LABS: BACTERIA,URINE None Seen /HPF (None Seen); RBC,URINE None Seen /HPF (0-5); SQUAMOUS EPITHELIAL CELL,UR FEW Squamous (<= Few); WBC,URINE 0-3 /HPF (0-5)
[2022-03-26 16:01] LABS: BACTERIAL VAGINOSIS DNA NEGATIVE (NEGATIVE); CANDIDA GLABRATA DNA NEGATIVE (NEGATIVE); CANDIDA GROUP DNA NEGATIVE (NEGATIVE); CANDIDA KRUSEI DNA NEGATIVE (NEGATIVE); TRICHOMONAS VAGINALIS DNA NEGATIVE (NEGATIVE)
--- NOTE | 2022-03-26 17:23 | PROVIDER PROGRESS NOTE ---
- HPI Chief Complaint: Labor Current : Current EDU 05/03/22 Gestation 34 Weeks and 4 Days 2 Para 1 Vital Signs Temperature 98.8 F 03/26/22 13:53 Heart Rate 104 H 03/26/22 13:53 Respiratory Rate 20 03/26/22 13:53 Blood Pressure 146/62 H 03/26/22 13:53 Temperature 98.8 F 03/26/22 13:53 Heart Rate 104 H 03/26/22 13:53 Respiratory Rate 20 03/26/22 13:53 Blood Pressure 146/62 H 03/26/22 13:53 O2 Saturation - Procedures OB Procedure Performed: NST Diagnosis/Indication for NST: Other ( labor) NST Procedure: NST Procedure Start Date 03/26/22 Start Time 13:55 Stop Time 14:20 Vibroacoustic Stimulation Used Yes Patient States Movement Yes - Plan Plan: Patient is a 21-year-old -0-1-1 at 34 weeks 4 days gestation presenting to triage for contractions/cramping. She has good movement, no leaking, no vaginal bleeding. She denies headache, right upper quadrant pain, changes in vision. She does say she had a long contraction from approximately 7-8 today. Since then she had intermittent cramping that feel low. She is unsure if her whole belly tightens. Past medical history Sleep dyspnea Heartburn Bronchospasms Past surgical history Low-transverse section Family history Noncontributory Social history Denies tobacco, alcohol, drugs Physical Exam Constitutional: alert, no acute distress, well hydrated, well developed, well nourished, appropriate dress. Skin: normal turgor, normal color. Head: atraumatic, normocephalic. Cardiovascular: RRR. Respiratory: no respiratory distress. Abdomen: nondistended, nontender. Spine: normal mobility. Neurologic: normal, sensation intact, motor intact. Psych: affect and mood appropriate, normal interaction, good eye contact. Vulva: Normal in appearance, no lesions or masses. Urethra: no masses, non-tender, no discharge. Bladder: No masses, non-tender, non-distended. SVE: 0/0/-3 FHT: 145 beats per baseline, moderate variability, accelerations present, no decelerations. [place]: Irregular/irritable Ferry Pilot present for exam. Assessment and plan 21-year-old -0-1-1 at 34 weeks 4 days gestation with false labor 1. False labor: -Contractions not leading to labor. Cervix closed on check and repeat almost 4 hours later. -Discussed low threshold for [place]. [place] due to desire to . Discussed risks and benefits of this. Discussed that when she is attempting to labor, we are the closest hospital, she may get to a point where it is unsafe to transfer her and we are unable to . Advised a schedule induction at [facility] if this is her desire. -UA and vaginosis panel unremarkable 2. 34 weeks gestation -Routine care 3. Previous low transverse section x1 -Desires
== END 2022-03-26 18:05 | disposition home or self-care (01) ==
LOC: WFO 13:32 → FBP 13:54 → WFO 18:05
PROVIDERS: ATTEND Obstetrics & Gynecology
DX: O47.03 False labor before 37 completed weeks of gestation, third trimester (principal); Z3A.34 34 weeks gestation of pregnancy; O34.211 Maternal care for low transverse scar from previous cesarean delivery
CPT/HCPCS: 59025; 81001; 81514; 99215

== ENCOUNTER 2022-04-22 22:45 | Outpatient (CLI) | payer OTHER, MEDICAID ==
[2022-04-22 23:04] VITALS: BP 115/62
[2022-04-22 23:50] LABS: RUPTURE OF MEMBRANES PLUS NEGATIVE (NEGATIVE)
--- NOTE | 2022-04-22 23:56 | PROVIDER PROGRESS NOTE ---
- HPI Chief Complaint: Labor Check Current : Vital Signs Temperature 98.4 F 04/22/22 22:53 Heart Rate 81 04/22/22 22:53 Respiratory Rate 18 04/22/22 22:53 Blood Pressure 115/62 04/22/22 22:53 Temperature 98.4 F 04/22/22 22:53 Heart Rate 81 04/22/22 22:53 Respiratory Rate 18 04/22/22 22:53 Blood Pressure 115/62 04/22/22 22:53 O2 Saturation - Procedures OB Procedure Performed: NST Diagnosis/Indication for NST: labor NST Procedure: NST Procedure Start Time 13:55 Stop Time 14:20 EFM: 130s,moderate variability, no decelerations, positive accelerations 15x15 Bledsoe: q5m NST reactive - Plan Plan: 22yo at 38.3w presenting with contractions starting about 4h prior. She has had contractions on and off in the third trimester. Reports some clear discharge, unsure if she broke her water. Denies vaginal bleeding. Good movement. care in [place] due to desire to . Hx CDx1 2019. Reports care otherwise uncomplicated. NKDA Meds: vitamins Med: denies Surg: CDx1 Social: , AD USN, denies ELZBIETA Fam: reviewed and negative VSS GEN: NAD CV: Regular rate Resp: Breathing unlabored Abd: soft, nt Ext: minimal edema SVE <1cm/40/-3 ROMPLUS NEG 22yo at 38.3w, false labor - NST reactive - Early term and not in active labor - Discharge to home, labor precautions reviewed. Follow up as scheduled with primary OB
== END 2022-04-23 00:20 | disposition home or self-care (01) ==
LOC: WFO 22:45 → FBP 22:46 → WFO 04-23 00:20
PROVIDERS: ATTEND Obstetrics & Gynecology
DX: O47.1 False labor at or after 37 completed weeks of gestation (principal); Z3A.38 38 weeks gestation of pregnancy
CPT/HCPCS: 59025; 84112; 99214; 99215

== ENCOUNTER 2022-08-02 11:39 | Emergency (ER) | payer OTHER, MEDICAID ==
[2022-08-02 12:01] VITALS: BP 115/70
[2022-08-02 12:32] LABS: BILIRUBIN,URINE NEGATIVE (NEGATIVE); GLUCOSE, URINE (UA) NEGATIVE (NEGATIVE); KETONES,URINE (UA) NEGATIVE (NEGATIVE); LEUKOCYTE ESTERASE, URINE TRACE (NEGATIVE); NITRITE,URINE NEGATIVE (NEGATIVE); OCCULT BLOOD,URINE NEGATIVE (NEGATIVE); PH,URINE 6.5 PH (5.0-7.5); PROTEIN,URINE NEGATIVE (NEGATIVE); UROBILINOGEN,URINE 0.2 (NORMAL) E.U./dL (NORMAL)
[2022-08-02 12:33] LABS: BASOPHILS % (AUTO) 0.3 %; EOSINOPHILS # (AUTO) 0.1 10^3/uL (0.0-0.7); EOSINOPHILS % (AUTO) 1.4 %; HGB - HEMOGLOBIN 13.7 g/dL (12.0-16.0); LYMPHOCYTES # (AUTO) 2.2 10^3/uL (1.5-3.5); LYMPHOCYTES % (AUTO) 60.6 %; MEAN CORPUSCULAR HEMOGLOBIN 27.3 pg (27.0-31.0); MEAN CORPUSCULAR HGB CONC 31.1 g/dL (32.0-36.0); MEAN CORPUSCULAR VOLUME 87.8 fL (81.0-99.0); MEAN PLATELET VOLUME 9.9 fL (7.9-10.8); MONOCYTES # (AUTO) 0.3 10^3/uL (0.0-1.0); MONOCYTES % (AUTO) 7.9 %; NEUTROPHILS # (AUTO) 1.1 10^3/uL (1.5-6.6); NEUTROPHILS % (AUTO) 29.8 %; PLT - PLATELET COUNT 283 10^3/uL (130-450); RED BLOOD COUNT 5.01 10^6/uL (4.20-5.40); RED CELL DISTRIBUTION WIDTH 12.6 % (12.0-15.0); WHITE BLOOD COUNT 3.6 x10^3/uL (4.8-10.8)
[2022-08-02 12:42] LABS: CLARITY,URINE CLEAR (CLEAR); HCG UR QUAL NEGATIVE
[2022-08-02 12:46] LABS: BACTERIA,URINE Rare /HPF (None Seen); RBC,URINE 0-5 /HPF (0-5); SQUAMOUS EPITHELIAL CELL,UR MANY Squamous (<= Few)
[2022-08-02 12:55] LABS: ALBUMIN 4.5 g/dL (3.2-5.5); ALBUMIN/GLOBULIN RATIO 1.3 (1.0-2.2); BILIRUBIN,TOTAL 0.7 mg/dL (0.2-1.0); CALCIUM 9.7 mg/dL (8.5-10.3); CREATININE 0.5 mg/dL (0.4-1.0)
--- NOTE | 2022-08-02 17:14 | ED Physician Documentation ---
History of Present Illness - Stated complaint Stated Complaint: ABD PX - Chief complaint Chief Complaint: Abd Pain - Additonal information Additional information: 22-year-old female presents emergency department for evaluation of intermittent lower pelvic cramping. Began about 6 weeks ago. She often has pain in the area of her incision. She did deliver a baby in early March. Patient has not had any fevers. No vomiting. She states that intermittently she has dysuria but has been told she does not have a urinary tract infection. She also is reporting a swollen cervical lymph node for which she is unsure if she has had it for just a few days or few weeks. 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: section, Other HEENT: Tonsil/Adenoidectomy - Present Medications Home Medications: Ambulatory Orders Medication Instructions Recorded Confirmed Pnv No.163/Iron/Folate No.10 [Pnv 1 tab PO DAILY 10/17/21 12/15/21 Tabs 20-1 Tablet] Albuterol Sulf [Ventolin Hfa 1 - 2 puffs INH Q4HR PRN #1 inhaler 12/15/21 Inhaler] Acetaminophen [Acetaminophen Extra 1,000 mg PO Q8H PRN #60 tablet 04/25/22 Strength] Docusate Sodium 100Mg Capsule 100 - 200 mg PO BID PRN #60 cap 04/25/22 [Colace 100Mg Capsule] Ibuprofen [Motrin] 600 mg PO Q6H PRN #30 tab 04/25/22 oxyCODONE [Roxicodone] 2.5 - 5 mg PO Q4H PRN #24 tablet 04/25/22 Doxycycline Hyclate 100 mg PO BID #20 cap 08/02/22 metroNIDAZOLE [Flagyl] 500 mg PO BID 7 Days #14 tablet 08/02/22 - Allergies Allergies/Adverse Reactions: Allergies Allergy/AdvReac Type Severity Reaction Status Date / Time No Known Drug Allergies Allergy Verified 08/02/22 12:01 - Social History Does the pt smoke?: No Smoking Status: Never smoker Does the pt drink ETOH?: No Does the pt have substance abuse?: No - Immunizations Immunizations are current?: Yes - POLST Patient has POLST: No PD ED PE NORMAL - General General: Alert and oriented X 3, No acute distress - HEENT HEENT: PERRL - Neck Neck: Supple, no meningeal sign, No adenopathy - Cardiac Cardiac: RRR, No murmur - Respiratory Respiratory: Clear bilaterally - Abdomen Abdomen: Normal bowel sounds, Soft, Non tender, Non distended. No: Other (Mild tenderness elicited with palpation of the lower pelvic region. Nonfocal. Nonperitoneal. incision is well-healed without surrounding erythema or any drainage.) - Female Female : Timber Cutter present, Other (Large amount of thick yellow discharge in the vaginal vault. No CMT or adnexal tenderness.) - Back Back: No CVA TTP - Derm Derm: Normal color, Warm and dry - Extremities Extremities: No deformity, No tenderness to palpate, Normal ROM s pain - Neuro Neuro: Alert and oriented X 3, reception centre manager 2-12 intact Eye Opening: Spontaneous Motor: Obeys Commands Verbal: Oriented GCS Score: 15 Results - Vitals Vitals: Vital Signs - 24 hr 08/02/22 11:54 Temperature 36.7 C Heart Rate 72 Respiratory 14 Rate Blood Pressure 115/70 O2 Saturation 100 Oxygen O2 Source Room air - Labs Labs: Microbiology 08/02/22 17:15 Wet Prep - Final Genital - Cervix Laboratory Tests 08/02/22 08/02/22 08/02/22 12:22 12:22 12:27 WBC 3.6 L RBC 5.01 Hgb 13.7 Hct 44.0 MCV 87.8 MCH 27.3 MCHC 31.1 L RDW 12.6 Plt Count 283 MPV 9.9 Neut # (Auto) 1.1 L Lymph # (Auto) 2.2 [place] # (Auto) 0.3 Eos # (Auto) 0.1 Baso # (Auto) 0.0 Absolute Nucleated RBC 0.00 Nucleated RBC % 0.0 Sodium 140 Potassium 4.0 Chloride 109 Carbon Dioxide 30 Anion Gap 1.0 L BUN 6 Creatinine 0.5 Estimated GFR (MDRD) 189 Glucose 76 Calcium 9.7 Total Bilirubin 0.7 AST 30 ALT 57 Alkaline Phosphatase 87 Total Protein 8.0 Albumin 4.5 Globulin 3.5 Albumin/Globulin Ratio 1.3 Lipase 31 Urine Color YELLOW Urine Clarity CLEAR Urine pH 6.5 Ur Specific [place] 1.015 Urine Protein NEGATIVE Urine Glucose (UA) NEGATIVE Urine Ketones NEGATIVE Urine Occult Blood NEGATIVE Urine Nitrite NEGATIVE Urine Bilirubin NEGATIVE Urine Urobilinogen 0.2 (NORMAL) Ur Leukocyte Esterase TRACE H Urine RBC 0-5 Urine WBC 4-5 Ur Squamous Epith Cells MANY Squamous H Urine Bacteria Rare Ur Microscopic Review INDICATED Urine Culture Comments NOT INDICATED Urine HCG, Qual NEGATIVE PD MEDICAL DECISION MAKING - ED course Complexity details: re-evaluated patient, considered differential, d/w patient ED course: 22-year-old female presents emergency department for evaluation of 6 weeks intermittent lower pelvic cramping as well as 3 weeks of she describes as foul- smelling yellow vaginal discharge. She is since March. She began having regular sexual activity with her partner about 8 weeks ago. In private she discussed with me that she is concerned her partner may not have been monogamous. On exam she does not have any leukocytosis or worrisome electrolyte derangement. Urine does not show signs of infection. Chaperoned pelvic exam revealed a large amount of thick yellow discharge in the vault though no CMT or adnexal tenderness. Wet prep is positive for clue cells indicating bacterial vaginosis. Given her history of concerned that her partner may not have been monogamous she has elected be empirically treated for STI. She was given a 500 mg ceftriaxone Here in the emergency department and will be discharged with a prescription for doxycycline. She will also be discharged with Flagyl for treatment of BV. I am making the recommendation that she follow-up very closely with gynecology in about 2 weeks time for reevaluation of her symptoms. We deferred pelvic imaging today given that the exam was not consistent with PID. Emergent return precautions otherwise discussed Departure - Departure Disposition: 01 Home, Self Care Clinical Impression: Vaginal discharge, Abdominal cramping, Bacterial vaginosis Condition: Stable Record reviewed to determine appropriate education?: Yes Instructions: ED Vaginosis Bacterial Prescriptions: Doxycycline Hyclate 100 mg PO BID #20 cap metroNIDAZOLE [Flagyl] 500 mg PO BID 7 Days #14 tablet Comments: Atif you came to the emergency department today because for a number of weeks she been having some cramping in her lower pelvic region and you have also begun to have some foul-smelling yellow discharge from her vagina. You do have concerns that your partner may not be monogamous. Given this history and concern we have chosen to empirically treat you for possible chlamydia and gonorrhea. You were given injection of ceftriaxone here in the emergency department and I am sending a prescription for doxycycline to the [facility] in [place]. You will take this for 10 days. The yellow discharge is also consistent with something that we will call bacterial vaginosis. Please fill the prescription for the Flagyl and begin taking twice daily for the next week. I would like you to follow-up with OB in about 2 weeks time. At that time you will be fully finished with the antibiotics and the better evaluation of your symptoms can be completed. If at any point you find that your symptoms worsen, you have suddenly severe abdominal pain uncontrolled vomiting then you should return immediately to the ER.
[2022-08-02] MEDS ORDERED: cefTRIAXone 500 MG VIAL IM STA (17:31)
[2022-08-02] MEDS ORDERED: LIDOCAINE 1% 2 ML VIAL MC ONE (17:31)
[2022-08-02 23:28] LABS: CHLAMYDIA TRACHOMATIS DNA NEGATIVE (NEGATIVE); NEISSERIA GONORRHOEAE DNA NEGATIVE (NEGATIVE); TRICHOMONAS VAGINALIS DNA NEGATIVE (NEGATIVE)
== END 2022-08-02 18:03 | disposition home or self-care (01) ==
LOC: ED 11:39
DX: N76.0 Acute vaginitis (principal)
CPT/HCPCS: 36415; 80053; 81001; 81003; 81025; 83690; 85025; 87086; 87210; 87491; 87591; 87661; 96372; 99284

== ENCOUNTER 2023-02-08 20:03 | Emergency (ER) | payer OTHER, MEDICAID ==
--- NOTE | 2023-02-08 21:03 | ED Physician Documentation ---
PD HPI MHE - Stated complaint Stated Complaint: MHE - Chief complaint Chief Complaint: MHE - History obtained from History obtained from: Patient - Additional information Additional information: HPI from patient. Patient is specifically asking to speak to a psychiatrist. She says to me that she has " depression, anger, I feel disassociation and psychosis." She gave in March 2022. She has not yet spoken to a medical professional about these feelings. She denies SI, HI. She also describes anhedonia, no longer taking interest in things that used to make her happy or bring her pleasure. Review of Systems Neurologic: denies: Headache Psychiatric: reports: Depressed. 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 : None HEENT: None Psych: Anxiety Musculoskeletal: None Derm: None - Past Surgical History Past Surgical History: Yes /TERRAZZO WORKER: section, Other HEENT: Tonsil/Adenoidectomy - Present Medications Home Medications: Ambulatory Orders Medication Instructions Recorded Confirmed Pnv No.163/Iron/Folate No.10 [Pnv 1 tab PO DAILY 10/17/21 12/15/21 Tabs 20-1 Tablet] Albuterol Sulf [Ventolin Hfa 1 - 2 puffs INH Q4HR PRN #1 inhaler 12/15/21 Inhaler] Acetaminophen [Acetaminophen Extra 1,000 mg PO Q8H PRN #60 tablet 04/25/22 Strength] Docusate Sodium 100Mg Capsule 100 - 200 mg PO BID PRN #60 cap 04/25/22 [Colace 100Mg Capsule] Ibuprofen [Motrin] 600 mg PO Q6H PRN #30 tab 04/25/22 oxyCODONE [Roxicodone] 2.5 - 5 mg PO Q4H PRN #24 tablet 04/25/22 Doxycycline Hyclate 100 mg PO BID #20 cap 08/02/22 metroNIDAZOLE [Flagyl] 500 mg PO BID 7 Days #14 tablet 08/02/22 - Allergies Allergies/Adverse Reactions: Allergies Allergy/AdvReac Type Severity Reaction Status Date / Time No Known Drug Allergies Allergy Verified 02/08/23 20:37 - Social History Does the pt smoke?: No Smoking Status: Never smoker Does the pt drink ETOH?: No Does the pt have substance abuse?: No - Immunizations Immunizations are current?: Yes - POLST Patient has POLST: No PD ED PE NORMAL - Vitals Vital signs reviewed: Yes - General General: Alert and oriented X 3, No acute distress, Well developed/nourished - Cardiac Cardiac: RRR, No murmur - Respiratory Respiratory: No respiratory distress, Clear bilaterally - Derm Derm: Normal color, Warm and dry - Neuro Neuro: Alert and oriented X 3 Eye Opening: Spontaneous Motor: Obeys Commands Verbal: Oriented GCS Score: 15 - Psych Psych: Normal mood, Normal affect Results - Vitals Vitals: Vital Signs - 24 hr 02/08/23 02/09/23 20:31 06:03 Temperature 36.7 C Heart Rate 57 L 71 Respiratory 20 18 Rate Blood Pressure 126/76 126/70 O2 Saturation 100 100 Oxygen O2 Source Room air - Labs Labs: Laboratory Tests 02/08/23 02/08/23 02/08/23 22:00 22:11 22:11 WBC 5.4 RBC 4.81 Hgb 13.3 Hct 42.0 MCV 87.3 MCH 27.7 MCHC 31.7 L RDW 12.8 Plt Count 231 MPV 10.5 Neut # (Auto) 1.8 Lymph # (Auto) 3.2 Pershing # (Auto) 0.3 Eos # (Auto) 0.1 Baso # (Auto) 0.0 Absolute Nucleated RBC 0.00 Nucleated RBC % 0.0 Sodium 138 Potassium 3.9 Chloride 104 Carbon Dioxide 22 Anion Gap 12.0 BUN 8 Creatinine 0.6 Estimated GFR (MDRD) 153 Glucose 78 Calcium 9.6 Total Bilirubin 1.0 AST 22 ALT 20 Alkaline Phosphatase 55 Total Protein 7.7 Albumin 4.5 Globulin 3.2 Albumin/Globulin Ratio 1.4 Lipase 33 TSH Urine Color YELLOW Urine Clarity CLEAR Urine pH 6.0 Ur Specific Hammond 1.020 Urine Protein NEGATIVE Urine Glucose (UA) NEGATIVE Urine Ketones 40 H Urine Occult Blood NEGATIVE Urine Nitrite NEGATIVE Urine Bilirubin NEGATIVE Urine Urobilinogen 0.2 (NORMAL) Ur Leukocyte Esterase TRACE H Urine RBC 0-5 Urine WBC 6-10 H Ur Squamous Epith Cells MOD Squamous H Urine Bacteria Few Ur Microscopic Review INDICATED Urine Culture Comments NOT INDICATED Urine HCG, Qual NEGATIVE Salicylates < 6.0 Urine Opiates Screen NEGATIVE Ur Oxycodone Screen NEGATIVE Urine Methadone Screen NEGATIVE Ur Propoxyphene Screen NEGATIVE Acetaminophen < 10 L Ur Barbiturates Screen NEGATIVE Ur Tricyclics Screen NEGATIVE Ur Phencyclidine Scrn NEGATIVE Ur Amphetamine Screen NEGATIVE U Methamphetamines Scrn NEGATIVE U Benzodiazepines Scrn NEGATIVE Urine Cocaine Screen NEGATIVE U Cannabinoids Screen POSITIVE H Ethyl Alcohol < 5.0 02/08/23 22:11 WBC RBC Hgb Hct MCV MCH MCHC RDW Plt Count MPV Neut # (Auto) Lymph # (Auto) Pershing # (Auto) Eos # (Auto) Baso # (Auto) Absolute Nucleated RBC Nucleated RBC % Sodium Potassium Chloride Carbon Dioxide Anion Gap BUN Creatinine Estimated GFR (MDRD) Glucose Calcium Total Bilirubin AST ALT Alkaline Phosphatase Total Protein Albumin Globulin Albumin/Globulin Ratio Lipase TSH 1.86 Urine Color Urine Clarity Urine pH Ur Specific Hammond Urine Protein Urine Glucose (UA) Urine Ketones Urine Occult Blood Urine Nitrite Urine Bilirubin Urine Urobilinogen Ur Leukocyte Esterase Urine RBC Urine WBC Ur Squamous Epith Cells Urine Bacteria Ur Microscopic Review Urine Culture Comments Urine HCG, Qual Salicylates Urine Opiates Screen Ur Oxycodone Screen Urine Methadone Screen Ur Propoxyphene Screen Acetaminophen Ur Barbiturates Screen Ur Tricyclics Screen Ur Phencyclidine Scrn Ur Amphetamine Screen U Methamphetamines Scrn U Benzodiazepines Scrn Urine Cocaine Screen U Cannabinoids Screen Ethyl Alcohol PD Medical Decision Making - ED course Complexity details: reviewed results, re-evaluated patient, considered differential, d/w patient ED course: Discussed with patient the services that can be offered at this time for mental health issues. I explained to her that if she does not feel safe going home (in other words, if she feels she needs inpatient treatment), we can start making phone calls to appropriate facilities to try to get her to hospital with an available bed for inpatient mental health evaluation and treatment. She tells me she does not think this is necessary. After further discussion, mutually shared decision-making resulted in option for obtaining a telepsychiatric consult. She understands that we will initially need some basic blood work and a urinalysis so that I can medically clear her for this consult. She is calm and cooperative during the history and physical. The telepsychiatrist is recommending inpatient treatment. The plan is voluntary inpatient treatment, although the telepsychiatrist says that the level of concern from her standpoint is sufficient to warrant a DCR evaluation should the patient relent and decide she does not want to receive inpatient mental health treatment from a voluntary standpoint. Care of patient is turned over to the oncoming ED physician (Dr. Watson) at end of my shift pending disposition to an appropriate facility with an available bed.
[2023-02-08 22:05] LABS: MUDS CUTOFF CONCENTRATIONS CUTOFF CONC BELOW:
[2023-02-08 22:08] LABS: HCG UR QUAL NEGATIVE
[2023-02-08 22:09] LABS: BILIRUBIN,URINE NEGATIVE (NEGATIVE); GLUCOSE, URINE (UA) NEGATIVE (NEGATIVE); KETONES,URINE (UA) 40 mg/dL (NEGATIVE); LEUKOCYTE ESTERASE, URINE TRACE (NEGATIVE); NITRITE,URINE NEGATIVE (NEGATIVE); OCCULT BLOOD,URINE NEGATIVE (NEGATIVE); PROTEIN,URINE NEGATIVE (NEGATIVE); UROBILINOGEN,URINE 0.2 (NORMAL) E.U./dL (NORMAL)
[2023-02-08 22:11] LABS: CLARITY,URINE CLEAR (CLEAR)
[2023-02-08 22:17] LABS: AMPHETAMINE SCREEN,URINE NEGATIVE (NEGATIVE); BARBITURATE SCREEN,UR NEGATIVE (NEGATIVE); BENZODIAZEPINES SCREEN, URINE NEGATIVE (NEGATIVE); COCAINE SCREEN URINE NEGATIVE (NEGATIVE); METHADONE SCREEN, URINE NEGATIVE (NEGATIVE); METHAMPHETAMINES SCREEN, URINE NEGATIVE (NEGATIVE); OPIATE SCREEN, URINE NEGATIVE (NEGATIVE); OXYCODONE SCREEN, URINE NEGATIVE (NEGATIVE); PROPOXYPHENE SCREEN, URINE NEGATIVE (NEGATIVE); THC CANNABINOID SCREEN, URINE POSITIVE (NEGATIVE); TRICYCLIC ANTIDEPRESSANT,URINE NEGATIVE (NEGATIVE)
[2023-02-08 22:17] LABS: BASOPHILS % (AUTO) 0.6 %; EOSINOPHILS # (AUTO) 0.1 10^3/uL (0.0-0.7); EOSINOPHILS % (AUTO) 1.8 %; HGB - HEMOGLOBIN 13.3 g/dL (12.0-16.0); LYMPHOCYTES # (AUTO) 3.2 10^3/uL (1.5-3.5); LYMPHOCYTES % (AUTO) 59.1 %; MEAN CORPUSCULAR HEMOGLOBIN 27.7 pg (27.0-31.0); MEAN CORPUSCULAR HGB CONC 31.7 g/dL (32.0-36.0); MEAN CORPUSCULAR VOLUME 87.3 fL (81.0-99.0); MEAN PLATELET VOLUME 10.5 fL (7.9-10.8); MONOCYTES # (AUTO) 0.3 10^3/uL (0.0-1.0); MONOCYTES % (AUTO) 5.9 %; NEUTROPHILS # (AUTO) 1.8 10^3/uL (1.5-6.6); NEUTROPHILS % (AUTO) 32.6 %; PLT - PLATELET COUNT 231 10^3/uL (130-450); RED BLOOD COUNT 4.81 10^6/uL (4.20-5.40); RED CELL DISTRIBUTION WIDTH 12.8 % (12.0-15.0); WHITE BLOOD COUNT 5.4 x10^3/uL (4.8-10.8)
[2023-02-08 22:22] LABS: BACTERIA,URINE Few /HPF (None Seen); RBC,URINE 0-5 /HPF (0-5); SQUAMOUS EPITHELIAL CELL,UR MOD Squamous (<= Few)
[2023-02-08 22:39] LABS: ACETAMINOPHEN < 10 ug/mL (10-30); ALBUMIN 4.5 g/dL (3.2-5.5); ALBUMIN/GLOBULIN RATIO 1.4 (1.0-2.2); ALKALINE PHOSPHATASE 55 IU/L (42-121); ALT ALANINE AMINOTRANSFERASE 20 IU/L (10-60); AST ASPARTATE AMINOTRANSFERASE 22 IU/L (10-42); BUN - BLOOD UREA NITROGEN 8 mg/dL (6-20); CALCIUM 9.6 mg/dL (8.5-10.3); CARBON DIOXIDE - CO2 22 mmol/L (21-32); CHLORIDE 104 mmol/L (101-111); CREATININE 0.6 mg/dL (0.4-1.0); ETOH - ETHANOL < 5.0 mg/dL; GFR - MDRD 153 (>89); GLUCOSE 78 mg/dL (70-100); LIPASE 33 U/L (22-51); POTASSIUM 3.9 mmol/L (3.5-5.0); SALICYLATE < 6.0 mg/dL; SODIUM 138 mmol/L (135-145); TOTAL PROTEIN 7.7 g/dL (6.7-8.2)
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
[2023-02-09] MEDS ORDERED: ARIPiprazole 5 MG TABLET PO SCH (09:00)
--- NOTE | 2023-02-09 11:41 | ED Physician Documentation ---
ED Addendum - Addendum Addendum: 02/09/23 11:40 The patient had a telepsych consult which recommended inpatient care. The patient was voluntary and agreeable to this. Social work talked with the patient and submitted a chart to a psychiatric facility. The patient is excepted for admission to [facility] I believe. [facility] is able to pick her up at 6 PM this evening. The facility cannot take her sooner. The patient is agreeable to this. Disposition: The patient is transferred to psychiatric facility Disposition: Depression and suicidal ideation
[2023-02-09 18:09] VITALS: BP 118/72
== END 2023-02-09 20:56 ==
LOC: ED 20:03
DX: F39 Unspecified mood [affective] disorder (principal); F43.25 Adjustment disorder with mixed disturbance of emotions and conduct; R45.851 Suicidal ideations; F32.A Depression, unspecified; Z20.822 Contact with and (suspected) exposure to COVID-19; J45.909 Unspecified asthma, uncomplicated
CPT/HCPCS: 36415; 80053; 80306; 80307; 80320; 80329; 81001; 81025; 83690; 84443; 85025; 87635; 99284; 99285; A9270; G0427; Q3014; 81003; 87086

== ENCOUNTER 2023-05-21 15:17 | Emergency (ER) | payer OTHER, MEDICAID ==
[2023-05-21 15:36] VITALS: BP 120/63; O2SAT 98
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
[2023-05-21] MEDS ORDERED: IBUPROFEN 600 MG TABLET PO STA (16:03)
[2023-05-21] MEDS ORDERED: diphenhydrAMINE 25 MG CAPSULE PO STA (16:03)
[2023-05-21] MEDS ORDERED: ACETAMINOPHEN 325 MG TABLET PO STA (16:03)
== END 2023-05-21 16:27 | disposition home or self-care (01) ==
LOC: ED 15:17
DX: T63.441A Toxic effect of venom of bees, accidental (unintentional), initial encounter (principal); R06.09 Other forms of dyspnea
CPT/HCPCS: 99282; 99283; A9270